=== PATIENT | male | born 1950 | race Caucasian/White ===

== ENCOUNTER 2022-01-05 16:46 | Outpatient (CLI) | payer MEDICARE, OTHER, SELFPAY | END 2022-01-05 23:59 | disposition home or self-care (01) | PROVIDERS: PCP Family Medicine; Visit Provider Family Medicine | DX: Z20.822 Contact with and (suspected) exposure to COVID-19 (principal) | CPT/HCPCS: 87635; U0003; U0005 ==

== ENCOUNTER → 2023-11-28 | Outpatient (CLI) | payer MEDICARE, OTHER, SELFPAY ==
--- OUTSIDE RECORDS SUMMARY | 2023-11-28 12:20 | XMS RPT_ITS | CCD ---
Author Name Unknown Address [address] [place] [address] Organization [facility] Care Team Providers Care Executive Consultant Name Role Phone Helen Mason Unavailable Holly Aiken Unavailable Unavailable Lani Fonseca Primary Care Provider [phone] LANI FONSECA Attending Unavailable LANI FONSECA Admitting Unavailable XIMENAEL, LANI Primary Care Unavailable LANI FONSECA Admitting Unavailable LANI FONSECA Primary Care Unavailable ARIEL LANI Consulting Unavailable LAURA FONSECAH Attending Unavailable PROVIDER, UNKNOWN Consulting Unavailable PROVIDER, UNKNOWN Consulting Unavailable LANI FONSECA Attending Unavailable ARIEL, LANI Admitting Unavailable ARIEL LANI Primary Care Unavailable ARIEL LANI Referring Unavailable RAJEEV MARMOLEJO DO Admitting Unavailable RAJEEV MARMOLEJO DO Primary Care Unavailable RAJEEV MARMOLEJO DO Attending Unavailable LANI FONSECA Consulting Unavailable PROVIDER, UNKNOWN Consulting Unavailable PROVIDER, UNKNOWN Consulting Unavailable Medications Completed/Discontinued Medications Medication Drug Class(es) Dates Sig (Normalized) Sig (Original) CPAP (1 source) CPAP hydroCHLOROthiazide 25 mg / lisinopril 20 mg oral tablet (1 source) Thiazide Diuretic, Angiotensin Converting Enzyme Inhibitor Start: 01-05-2021 take 1 tablet by mouth once daily lisinopril-hydr oCHLOROthiazide (PRINZIDE, ZESTORETIC) 20-25 mg per tablet Take 1 tablet by mouth once daily. 0 01/05/2021 Active Problems Active Problems Problem Classification Problem Date Documented Da te Episodic/Chronic Cancer of prostate (1 source) Malignant tumor of prostate; Translations: [Malignant neoplasm of prostate] Chronic Immunizations and screening for infectious disease (2 sources) Contact with and (suspected) exposure to other viral communicable diseases; Translations: [Exposure to SARS virus] 07-26-2020 Episodic Past or Other Problems Problem Classification Problem Date Documented Da te Episodic/Chronic Spondylosis; intervertebral disc disorders; other back problems (3 sources) Radiculopathy, lumbar region; Translations: [Radiculopathy, lumbar region] Onset: 12-11-2022 Episodic Unclassified (2 sources) Unclassified (2 sources) Exposure to SARS virus Results Test Name Value Interpretation Reference Range Facil ity Vital Signs Date Time Vital Sign Value Performing Clinician Faci lity 02-17-2021 09:40-0400 Body height 177.8 cm Nicholas Zamora MD Work Phone: [facility] 02-17-2021 09:40-0400 Body temperature 96.91 [degF] Nicholas Zamora MD Work Phone: [facility] 02-17-2021 09:40-0400 Body weight 102.38 kg Nicholas Zamora MD Work Phone: [facility] 02-17-2021 09:40-0400 Diastolic blood pressure 92 mm[Hg] Nicholas Zamora MD Work Phone: [facility] 02-17-2021 09:40-0400 Heart rate 91 /min Nicholas Zamora MD Work Phone: [facility] 02-17-2021 09:40-0400 Systolic blood pressure 143 mm[Hg] Nicholas Zamora MD Work Phone: [facility] Encounters Encounter Date Encounter Type Care Provider Facility Start: 11-07-2023 End: 11-07-2023 ambulatory [facility] Start: 12-13-2022 End: 12-14-2022 Emergency department patient visit [facility] Start: 12-12-2022 End: 12-12-2022 ambulatory [facility] Start: 12-11-2022 End: 01-15-2023 ambulatory [facility] Start: 02-17-2021 End: 02-17-2021 Patient encounter procedure Nicholas Zamora MD Work Phone: Urology Procedures Date Procedure Procedure Detail Performing Clinician Start: 11-07-2023 PSA screening LANI JHAVERI Plan of Treatment Date Care Activity Detail Author Start: 06-21-2021 Influenza vaccination INFLUENZA (Sea son Ended) [facility] Start: 02-24-2021 End: 03-19-2022 Bone &/joint imaging whole body NM BONE WHOLE BODY Radiology Routine Malignant neoplasm of prostate (HCC) Expected: 02/24/2021, Expires: 03/19/2022 [facility] Payers Date Payer Category Payer Unknown MMO MMO MEDICARE SUPPLEMENT [id number] 2020-Present Indemnity [id number] 2016 Medicare MEDICARE MEDICAR E A AND B [id number] 2016-Present [place] Medicare [id number] 1950 Unknown [id number] 1950 Unknown [id number] 1950 Unknown [id number] 1950 Unknown [id number] Medicare [id number] Unknown Unknown [id number] Social History Date Type Detail Facility Tobacco smoking status HIIS Unknown if ev er smoked [facility] Start: 1950 Sex Assigned At Not on file [facility] Exposure to SARS-CoV -2 (event) Unable to assess [facility] Start: 02-17-2021 Tobacco smoking status NHIS Never sm oker [facility] Start: 02-17-2021 Tobacco use and exposure Never used [facility] Start: 1950 Sex Assigned At Male [facility] Exposure to SARS-CoV -2 (event) Not sure [facility] Clinical Notes 02-17-2021 to 09-12-2021 Nicholas Zamora MD - 02/17/2021 9:40 AM EDT Note Date & Type Note Facility 09-12-2021 Note HNO ID: [id number] Author: Kenyon Navarrete, DO Service: ? Author Type: Physician Type: Progress Notes Filed: 09/12/2021 10:46 AM Note Text: ?? [facility] [place] [facility] UROLOGY LOCATION: [address] [place] [address] ESTABLISHED PATIENT PATIENT INFO: Gabriela Stephens 71 year old Chief Complaint: Prostate Cancer HPI S/P RARP with PLND 05/22/21. RAJWINDER down to one safety liner. 1-Duration: 2020 2-Location: prostate 3-Severity: N/A 4-Quality: Not applicable 5-Context: N/A 6-Timing: N/A 7-Modifying factors: No treatment prior to referral 8-Associated signs AND symptoms: no additional symptoms PATHOLOGY: FINAL DIAGNOSIS A. ?Prostate with bilateral seminal vesicles and bilateral pelvic lymph nodes, radical prostatectomy with lymph node dissection ? Prostatic adenocarcinoma, [place] score 3+4 = 7 (grade group 2) with approximately 10% pattern 4 present. ?Tumor is confined within the prostate gland. ?The left base margin is focally positive for malignancy. ?See comment. ?Seminal vesicles, bilateral ? Negative for malignancy. ?Bilateral pelvic lymph nodes (7) ? Negative for malignancy. LAB: WBC (k/uL) Date Value 05/23/2021 11.43 (H) RBC (m/uL) Date Value 05/23/2021 3.92 (L) Hemoglobin (g/dL) Date Value 05/23/2021 12.3 (L) Hematocrit (%) Date Value 05/23/2021 35.4 (L) MCV (fL) Date Value 05/23/2021 90.3 MCH (pg) Date Value 05/23/2021 31.4 MCHC (g/dL) Date Value 05/23/2021 34.7 RDW-CV (%) Date Value 05/23/2021 13.4 Platelet Count (k/uL) Date Value 05/23/2021 166 MPV (fL) Date Value 05/23/2021 10.7 Creatinine Date Value Ref Range Status 05/26/2021 2.09 (H) 0.73 - 1.22 mg/dL Final 05/23/2021 3.00 (H) 0.73 - 1.22 mg/dL Final 05/23/2021 3.00 (H) 0.73 - 1.22 mg/dL Final 05/11/2021 1.41 (H) 0.73 - 1.22 mg/dL Final PSA (ng/mL) Date Value 09/09/2021 <0.1 URINE POC GLUCOSE UA (POCT) Negative 09/12/2021 BILIRUBIN UA (POCT) Negative 09/12/2021 KETONE UA (POCT) Negative 09/12/2021 SPECIFIC GRAVITY UA (POCT) 1.020 09/12/2021 HEMOGLOBIN/BLOOD UA (POCT) Negative 09/12/2021 PH UA (POCT) 7.0 09/12/2021 PROTEIN UA (POCT) Negative 09/12/2021 UROBILINOGEN UA (POCT) 0.2 09/12/2021 NITRITE UA (POCT) Negative 09/12/2021 LEUKOCYTES UA (POCT) Negative 09/12/2021 COLOR UA (POCT) Yellow 09/12/2021 CLARITY UA (POCT) Clear 09/12/2021 IMAGING: None No imaging to review. ALLERGIES: ALLERGIES No Known Allergies MEDICATIONS: docusate sodium (COLACE) 100 mg capsule Take 1 capsule by mouth twice daily. lisinopril-hydroCHLOROthiazide (PRINZIDE, ZESTORETIC) 20-25 mg per tablet Take 1 tablet by mouth once daily. lovastatin (MEVACOR) 20 mg tablet 20 mg once daily. metFORMIN ER (GLUCOPHAGE XR) 500 mg 24 hr tablet Take 500 mg by mouth twice daily. niacin 1,000 mg TbER Take 1 tablet by mouth once daily. CPAP iv contrast (will be provided with radiology test) MRI Prostate Inject, intravenously, once for 1 dose. No IV access, insert saline lock prior to the beginning of sedation, infusion, injection of imaging exam. Discontinue saline lock post exam. If Pt. has a central line or IVAD, may access for administration according to line specific nursing protocol. Once exam is complete flush line and de-access according to line specific nursing protocol in the MR contrast administration guidelines link. Does the patient take any herbal medications?: No HISTORIES PAST MEDICAL HISTORY Diagnosis Date - Diabetes mellitus (HCC) - HLD (hyperlipidemia) - HTN (hypertension) - VASILE on CPAP - Prostate cancer (HCC) Smoking Status Reviewed: Yes REVIEW OF SYSTEMS GENERAL: No fever, chills, weight loss, or fatigue. HEAD AND NECK: No blurred vision or Sjogren's syndrome CARDIOVASCULAR: NO CHEST PAIN, PALPITATIONS, ANKLE EDEMA RESPIRATORY: No chronic cough, wheezing, dyspnea, hemoptysis. MUSCULOSKELETAL: NO CHRONIC BACK PAIN, ARTHRITIS, CHRONIC NECK PAIN SKIN: NO VARICOSE VEINS, RASH, ABNORMAL ITCHING BLOOD/LYMPHATIC: No easy bleeding, easy bruising, transfusion Hx NEUROLOGICAL: NO HEADACHES, NUMBNESS, SEIZURES, STROKE PSYCHIATRIC: No depression or inordinate anxiety The remainder of the ROS was negative. PHYSICAL EXAMINATION BP 124/90 Ht 177.8 cm (5' 10 ) Wt 97.5 kg (215 lb) BMI 30.85 kg/m? General appearance: Well appearing, alert, in no acute distress and well-hydrated, well nourished Skin: Skin color, texture, turgor normal, no suspicious rashes or lesions Head: Normocephalic, no masses, lesions, tenderness or abnormalities Abdomen: Normal abdominal exam, Abdomen soft, non-tender. Bowel sounds normal. No masses, organomegaly Genitourinary: MALE EXAM: Exam NOT Indicated PVR: NA IMPRESSION/PLAN: Elpidio 3+4 = 7 prostate cancer S/P RARP with PLND. Grossly negative margins. PSA in 3 months undetectable. Vicente. Deidra 5 (more content not included)... [facility] 05-30-2021 Note HNO ID: [id number] Author: Kenyon Navarrete, DO Service: ? Author Type: Physician Type: Progress Notes Filed: 05/30/2021 11:00 AM Note Text: ?? [facility] [place] [facility] UROLOGY LOCATION: [address] [place] [address] ESTABLISHED PATIENT PATIENT INFO: Gabriela Stephens 70 year old Chief Complaint: Prostate Cancer HPI S/P RARP with PLND. Doing well. Reece removed. No pain. 1-Duration: 2020 2-Location: prostate 3-Severity: N/A 4-Quality: Not applicable 5-Context: N/A 6-Timing: N/A 7-Modifying factors: No treatment prior to referral 8-Associated signs AND symptoms: no additional symptoms PATHOLOGY: FINAL DIAGNOSIS A. Prostate with bilateral seminal vesicles and bilateral pelvic lymph nodes, radical prostatectomy with lymph node dissection ? Prostatic adenocarcinoma, [place] score 3+4 = 7 (grade group 2) with approximately 10% pattern 4 present. Tumor is confined within the prostate gland. The left base margin is focally positive for malignancy. See comment. Seminal vesicles, bilateral ? Negative for malignancy. ? Bilateral pelvic lymph nodes (7) ? Negative for malignancy. LAB: WBC (k/uL) Date Value 05/23/2021 11.43 (H) RBC (m/uL) Date Value 05/23/2021 3.92 (L) Hemoglobin (g/dL) Date Value 05/23/2021 12.3 (L) Hematocrit (%) Date Value 05/23/2021 35.4 (L) MCV (fL) Date Value 05/23/2021 90.3 MCH (pg) Date Value 05/23/2021 31.4 MCHC (g/dL) Date Value 05/23/2021 34.7 RDW-CV (%) Date Value 05/23/2021 13.4 Platelet Count (k/uL) Date Value 05/23/2021 166 MPV (fL) Date Value 05/23/2021 10.7 Creatinine Date Value Ref Range Status 05/26/2021 2.09 (H) 0.73 - 1.22 mg/dL Final 05/23/2021 3.00 (H) 0.73 - 1.22 mg/dL Final 05/23/2021 3.00 (H) 0.73 - 1.22 mg/dL Final 05/11/2021 1.41 (H) 0.73 - 1.22 mg/dL Final URINE POC No results found for this basename: uglucpoc,ubilipoc,uketonpoc,usgpo c,uhbpoc,uphpoc,upropoc,uuropoc,u nitpoc, bcpoc,ucolpoc,uclarpoc IMAGING: None No imaging to review. ALLERGIES: ALLERGIES No Known Allergies MEDICATIONS: docusate sodium (COLACE) 100 mg capsule Take 1 capsule by mouth twice daily. lisinopril-hydroCHLOROthiazide (PRINZIDE, ZESTORETIC) 20-25 mg per tablet Take 1 tablet by mouth once daily. lovastatin (MEVACOR) 20 mg tablet 20 mg once daily. metFORMIN ER (GLUCOPHAGE XR) 500 mg 24 hr tablet Take 500 mg by mouth twice daily. niacin 1,000 mg TbER Take 1 tablet by mouth once daily. CPAP iv contrast (will be provided with radiology test) MRI Prostate Inject, intravenously, once for 1 dose. No IV access, insert saline lock prior to the beginning of sedation, infusion, injection of imaging exam. Discontinue saline lock post exam. If Pt. has a central line or IVAD, may access for administration according to line specific nursing protocol. Once exam is complete flush line and de-access according to line specific nursing protocol in the MR contrast administration guidelines link. Does the patient take any herbal medications?: No HISTORIES PAST MEDICAL HISTORY Diagnosis Date - Diabetes mellitus (HCC) - HLD (hyperlipidemia) - HTN (hypertension) - VASILE on CPAP - Prostate cancer (HCC) Smoking Status Reviewed: Yes REVIEW OF SYSTEMS GENERAL: No fever, chills, weight loss, or fatigue. HEAD AND NECK: No blurred vision or Sjogren's syndrome CARDIOVASCULAR: NO CHEST PAIN, PALPITATIONS, ANKLE EDEMA RESPIRATORY: No chronic cough, wheezing, dyspnea, hemoptysis. MUSCULOSKELETAL: NO CHRONIC BACK PAIN, ARTHRITIS, CHRONIC NECK PAIN SKIN: NO VARICOSE VEINS, RASH, ABNORMAL ITCHING BLOOD/LYMPHATIC: No easy bleeding, easy bruising, transfusion Hx NEUROLOGICAL: NO HEADACHES, NUMBNESS, SEIZURES, STROKE PSYCHIATRIC: No depression or inordinate anxiety The remainder of the ROS was negative. PHYSICAL EXAMINATION Ht 177.8 cm (5' 10 ) Wt 97.5 kg (215 lb) BMI 30.85 kg/m? General appearance: Well appearing, alert, in no acute distress and well-hydrated, well nourished Skin: Skin color, texture, turgor normal, no suspicious rashes or lesions Head: Normocephalic, no masses, lesions, tenderness or abnormalities Abdomen: Normal abdominal exam, Abdomen soft, non-tender. Bowel sounds normal. No masses, organomegaly Genitourinary: MALE EXAM: Exam NOT Indicated PVR: NA IMPRESSION/PLAN: [place] 3+4 = 7 prostate cancer S/P RARP with PLND. Grossly negative margins. PSA in 3 months. Kegels. Cialis 5 mg daily. Repeat BP improving. May need nephrology consult thru PCP. RTC in 3 months. Consider PFT. I spent 30 minutes in the visit, with more than 50% of the total wmgp-us-itls time of the visit in counseling / coordination of care. Kenyon Navarrete DO MBA [facility] 05-23-2021 Note HNO ID: [id number] Author: Cristofer Vaughan MD Service: Urology Author Type: Physician Type: Progress Notes Filed: 05/23/2021 8:48 AM Note Text: UROLOGY PROGRESS NOTE PATIENT NAME: Gabriela Stephens DATE OF : 1950 ADMISSION DATE: 05/22/2021 6:36 AM Subjective No acute events overnight. Patient slept comfortably overnight States pain has been 3/10 since surgery and controlled with meds Denies fevers, nausea, vomiting Has passed flatus but has not ambulated Objective VS: BP 124/70 Pulse 91 Temp 36.7 ?C (98.1 ?F) (Oral) Resp 17 Ht 177.8 cm (5' 10 ) Wt 99.6 kg (219 lb 8 oz) SpO2 95% BMI 31.49 kg/m? I AND O - 24hr: Intake/Output Summary (Last 24 hours) at 05/23/2021 0643 Last data filed at 05/23/2021 0400 Gross per 24 hour Intake 2350 ml Output 575 ml Net 1775 ml Physical Exam: General: Neck: Resp: Abdomen: No acute distress Supple Normal effort Soft, appropriately-tender, nondistended. Incisions clean, dry, intact : Appropriate mild suprapubic tenderness. No flank pain bilaterally Labs and Imaging Studies LABS: BMP: Glucose (mg/dL) Date Value 05/23/2021 215 Potassium (mmol/L) Date Value 05/23/2021 4.5 Sodium (mmol/L) Date Value 05/23/2021 132 Chloride (mmol/L) Date Value 05/23/2021 99 CO2 (mmol/L) Date Value 05/23/2021 19 Creatinine (mg/dL) Date Value 05/23/2021 3.00 BUN (mg/dL) Date Value 05/23/2021 43 Anion Gap (mmol/L) Date Value 05/23/2021 14 Calcium, Total (mg/dL) Date Value 05/23/2021 8.4 CBC: Hemoglobin (g/dL) Date Value 05/23/2021 12.3 Hematocrit (%) Date Value 05/23/2021 35.4 WBC (k/uL) Date Value 05/23/2021 11.43 Platelet Count (k/uL) Date Value 05/23/2021 166 Urinalysis: No results found for: PH, SPGR, UGLUC, UBILI, UKET, UHB, UPROT, UROBIL, NITRITES, UWBC, SSA Urine Culture: No results found for: URCUL RADIOLOGY: None Assessment and Plan ASSESSMENT: 70 year old male POD 1 robotic retropubic radial prostatectomy with pelvic lymph node dissection PLAN: Regular diet Utilize IS IV LR @50 OOB, ambulate as able Pain and nausea management PRN Anticipate DC today if tolerating pain, eating, and ambulating comfortably Stephen Kay MS Agree with medical student assessment and plan as above. Any additions noted in blue and any changes noted with . Advance diet. SQH for DVT PPx given elevated serum Cr Plan for discharge if tolerating diet, ambulating and pain controlled. Outpatient BMP to check renal function after discharge. Jaylen Win MD Urology, PGY5 7:28 AM 05/23/2021 #[id number] I saw and evaluated the patient. Discussed with the resident and agree with resident's findings and plan as documented in the resident's note. [facility] 05-22-2021 Note HNO ID: [id number] Author: Jessica Evans APRN.RUG SIZER Service: Anesthesiology Author Type: Nurse Cad Specialist Type: Anesthesia Procedure Notes Filed: 05/22/2021 8:58 AM Note Text: ANESTHESIOLOGY PROCEDURE NOTE PIV General Information Patient Location: OR Staffing RUG SIZER: Jessica Evans APRN.RUG SIZER Performed by: ABIODUN Preparation Sterility Preparation: hand hygiene performed prior to procedure, surgical cap used, mask used, skin prep agent completely dried prior to procedure Site Prep: Chloraprep Procedure Details Indication: need for IV access Needle Size/Type: 16 gauge angiocath Orientation: Left Location: Forearm Imaging Guidance Used: No SIGNATURE: Jessica Evans APRN.CRNA PATIENT NAME: Gabriela Stephens DATE: May 22, 2021 TIME: 8:58 AM CSN: [id number] [facility] 05-22-2021 Note HNO ID: [id number] Author: Jessica Evans APRN.CRNA Service: Anesthesiology Author Type: Nurse Cad Specialist Type: Anesthesia Procedure Notes Filed: 05/22/2021 8:57 AM Note Text: ANESTHESIOLOGY PROCEDURE NOTE Airway General Information Procedure Start Time/Medication Administration: 05/22/2021 8:29 AM Patient location during procedure: OR Patient identity confirmed: arm band and patient Staffing Anesthesiologist: Keon Emanuel MD RUG SIZER: Jessica Evans APRN.RUG SIZER Performed by: anesthesiologist Indications and Patient Condition Preoxygenated: yes Patient position: sniffing and ramp Manual In-Line Stabilization: No Difficult Mask: No Indications for airway management: anesthesia anesthesia circuit Method: asleep Cricoid Pressure: No Airway Accessory: oral airway Final Airway Details Final airway type: endotracheal airway Final Endotracheal Airway: ETT Cuffed: yes Successful intubation technique: direct laryngoscopy Endotracheal tube insertion site: oral Blade: Vanessa Blade size: #3 (per dr. Emanuel, could be grade I with MAC 4) ETT size (mm): 8.0 Measured from: lips Measurement (cm): 24 Placement verified by: chest auscultation and capnometry Cormack-Lehane Classification: grade IIb - view of arytenoids or posterior of glottis only Number of attempts at approach: 1 Airway not difficult SIGNATURE: Jessica Evans APRN.CRNA PATIENT NAME: Gabriela Stephens DATE: May 22, 2021 TIME: 8:54 AM CSN: [id number] [facility] 05-11-2021 Note HNO ID: [id number] Author: RT Prema(R) Service: Radiology Author Type: Midwife Type: Progress Notes Filed: 05/11/2021 9:47 AM Note Text: Radiology Service Progress Note PATIENT NAME: Gabriela Stephens DATE OF SERVICE: May 11, 2021 TIME: 9:47 AM PATIENT IDENTITY VERIFICATION COMPLETED USING TWO (2) IDENTIFIERS: Name and Date of confirmed by patient verbally and Name and Date of confirmed by identification band. FALL SCREENING: Has the patient had 2 falls in the last year or 1 fall with injury or currently using an Ambulatory Assistive Device (Walker, Cane, Wheelchair, Crutches, etc.)? No PATIENT GENDER DATA: Male PATIENT RELEVANT IMPLANT DATA REVIEWED: Not Applicable RADIOLOGY DEPARTMENT: General X-ray: Exam(s) Completed: Chest X-Ray PERIPHERAL IV DATA: Not applicable SIGNED BY: RT Prema(R) May 11, 2021 9:47 AM [facility] 05-02-2021 Note HNO ID: [id number] Author: Natalie Burgess Service: ? Author Type: ? Type: Progress Notes Filed: 05/02/2021 1:24 PM Note Text: May 02, 2021 1:23 PM Patient is scheduled for surgery at [facility] with Dr. Navarrete on 05/22/2021 at 8:30am. PAT in [place] on 05/11/2021. Patient is aware of date, time, location, and pre op instructions. Patient had no further questions at this time. Booklet has been handed to patient in the [place] office Natalie Fernandez [facility] 05-02-2021 Note HNO ID: [id number] Author: Kenyon Navarrete, DO Service: ? Author Type: Physician Type: Progress Notes Filed: 05/02/2021 1:20 PM Note Text: ?? [facility] [place] [facility] UROLOGY LOCATION: [address] [place] [address] NEW CONSULT VISIT PATIENT INFO: Gabriela Stephens 70 year old PCP: Lani Fonseca MD Consultation requested by and my final recommendations will be communicated back to the requesting physician by way of shared medical record or letter via US mail. Chief Complaint: Prostate Cancer HPI Referral from Dr. Zamora. Here with to discuss surgery. He had an MRI fusion biopsy. This biopsy demonstrated 1 core of Elpidio 8 prostate cancer. HISTORY OF PRESENT ILLNESS: Mr. Stephens is a 70 year old and presents with spouse, Afsaneh to discuss prostate cancer management. ? Pt underwent negative prostate biopsy 10/2015. MRI in 2019 negative. Last prostate bx 01/17/2021. Pt brings results as they are still populating in [facility]. ? INTERPRETATION A. Left lateral base- chronic inflammation B. Left ladteral mid- benign prostate tissue C. Left lateral apex- benign prostate tissue with focal atrophy D. Left base0 adenocarcinoma; Elpidio Score 8 (4+4); tumor measures 0.21 cm in length; 15% core involved; perineural invasion not identified. E. 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 Left apex- benign prostate tissue with focal atrophy G. Right base- beningn prostate tissue ? ? NCCN CRITERIA VALUES Clinical Stage (AJCC 7th Edition) T1c, N0, Mx = stage IIC [T1-T2, N0, M0, PSA <20, GG 4] (AJCC 8th ed.) Previous PSA Score(s) (PSA Should Be Within 3 Months of Biopsy) 12/2020- 13.35 Date of Biopsy January 17, 2021 Type of Biopsy TRUS Random Biopsy [place]/ISUP Group 4 + 4 = 8 (Grade Group 4) Total # of Biopsy Cores 13 Total # of Positive Biopsy Cores 1 Greatest % Cancer in Any Single Core 10-25% PSA Density Result: 0.23 2016 NCCN Risk Group High Risk Group ? PERTINENT HISTORY: Urinary frequency (D/N): 12-14/3 Dysuria: No Incontinence: Minimal Hematuria: Minimal- only since bx Baseline Urinary Function: 1- No pads ? AUA QUESTIONNAIRE (Symptoms Prior to Biopsy): Incomplete Emptyin (less than 1 time in 5) Frequency (within 2 hours of previous void): 4 (more than half the time) Intermittency: 2 (less than half the time) Urgency (difficulty postponing urination): 2 (less than half the time) Weak Stream: 4 (more than half the time)- over the past year Strainin (less than 1 time in 5) Nocturia: 3x per night - Total AUA Score: 17 ? BASELINE ERECTILE FUNCTION: 3- Diminished but occasionally satisfactory for intercourse SHANNON score: 12 PREVIOUS TREATMENTS: None ? TESTING TO DATE: MR Results: 04/2020- Volume 57.7 No target lesion of concerning focus of restricted diffusion. No ARNOLDO or adenopathy ? GENOMIC TESTING: None 1-Duration: 2020 2-Location: prostate 3-Severity: N/A 4-Quality: Not applicable 5-Context: N/A 6-Timing: N/A 7-Modifying factors: No treatment prior to referral 8-Associated signs AND symptoms: no additional symptoms PATHOLOGY: FINAL DIAGNOSIS 1. Prostate, left lateral base, biopsy ([id number], 01/17/2021, A) - Benign prostatic tissue. 2. Prostate, left lateral mid, biopsy (B) - Benign prostatic tissue. 3. Prostate, left lateral apex, biopsy (C) - Benign prostatic tissue. 4. Prostate, left base, biopsy (D) - Adenocarcinoma of the prostate, Elpidio Score 4+3=7 (Grade Group 3), involving one of one core (15%, 2 mm). - Cribriform pattern 4 is identified. 5. Prostate, left mid, biopsy (E) - Benign prostatic tissue. 6. Prostate, left apex, biopsy (F) - Benign prostatic tissue. 7. Prostate, right base, biopsy (G) - Benign prostatic tissue. 8. Prostate, right mid, biopsy (H) - Benign prostatic tissue. 9. Prostate, right apex, biopsy (I) - High-grade prostatic intraepithelial neoplasia. 10. Prostate, right lateral base, biopsy (J) - Benign prostatic tissue. 11. Prostate, right lateral mid, biopsy (K) - High-grade prostatic intraepithelial neoplasia. 12. Prostate, right lateral apex, biopsy (L) - High-grade prostatic intraepithelial neoplasia. Prostate Cancer Biopsy Summary Number of cores examined: 12 Number of cores positive: 1 Highest Grade Group: 3 Highest % of core involvement: 15% Cribriform pattern 4: Present Intraductal carcinoma: Absent CGP/dsh 02/16/2021 LAB: No results found for: WBC, RBC, HB, HCT, MCV, MCH, MCHC, RDWCV, PLT, MPV, NEUTP, LYMPHP, MONOP, EODINP, BASOP, ABSNEUT, ABSLYM, ABSMONO, ABSEOSIN, ABSBASO No results found for: CREAT No results found for: PSA, PSAPER URINE POC No results found for this basename: uglucpoc,ubilipoc,uketonpoc,usgpo c,uhbpoc,uphpoc,upropoc,uuropoc,u nitpoc,uw bcpoc,ucolpoc,uclarpoc IMAGING: MRI: IMPRESSION: 1.4 cm PI-RADS 3 lesion at the LEFT mid/base ant (more content not included)... [facility] 03-22-2021 Note HNO ID: [id number] Author: RT Mariana(R) Service: Radiology Author Type: Midwife Type: Progress Notes Filed: 03/22/2021 6:02 PM Note Text: Radiology Service Progress Note PATIENT NAME: Gabriela Stephens DATE OF SERVICE: March 22, 2021 TIME: 6:01 PM PATIENT IDENTITY VERIFICATION COMPLETED USING TWO (2) IDENTIFIERS: Name and Date of confirmed by patient verbally and Name and Date of confirmed by identification band. FALL SCREENING: Has the patient had 2 falls in the last year or 1 fall with injury or currently using an Ambulatory Assistive Device (Walker, Cane, Wheelchair, Crutches, etc.)? No PATIENT GENDER DATA: Male PATIENT RELEVANT IMPLANT DATA REVIEWED: Yes RADIOLOGY DEPARTMENT: MR; Exam(s) Completed: Body: Prostate PERIPHERAL IV DATA: Site assessment: Clean,Dry and Intact, Site disposition Discontinued SIGNED BY: RT Mariana(R) March 22, 2021 6:01 PM [facility] 03-22-2021 Note HNO ID: [id number] Author: Mimi Huber RN Service: Radiology Author Type: Registered Nurse Type: Progress Notes Filed: 03/22/2021 4:14 PM Note Text: Radiology Service Progress Note DATE OF SERVICE: March 22, 2021 TIME: 4:09 PM PATIENT WEIGHT: 222LBS PATIENT IDENTITY VERIFICATION COMPLETED USING TWO (2) STANDARD IDENTIFIERS: Name and Date of confirmed by patient verbally and Name and Date of confirmed by identification band. FALL SCREENING: Has the patient had 2 falls in the last year or 1 fall with injury or currently using an Ambulatory Assistive Device (Walker, Cane, Wheelchair, Crutches, etc.)? No PATIENT GENDER DATA: Male ALLERGIES: Reviewed and unchanged CONTRAST ALLERGY: No EXAM: MRI - CONTRAST TYPE: GROUP II IV SITE: Ambulatory: A peripheral IV was started in the Left antecubital site with a Angio cath: 22 gauge. blood return obtained. Flushed with 10cc normal saline IV SITE APPEARANCE: Clean,Dry and Intact SIGNATURE: Mimi Huber RN PATIENT NAME: Gabriela Stephens DATE: March 22, 2021 TIME: 4:09 PM [facility] 02-28-2021 Note HNO ID: [id number] Author: RT Monico(R) Service: Nuclear Medicine Author Type: Midwife Type: Progress Notes Filed: 02/28/2021 12:19 PM Note Text: RADIOLOGY SERVICE PROGRESS NOTE SERVICE DATE: 02/28/2021 SERVICE TIME: 12:18 PM PATIENT IDENTITY VERIFICATION COMPLETED USING TWO (2) STANDARD IDENTIFIERS: Name and Date of confirmed by patient verbally FALL SCREENING: Has the patient had 2 falls in the last year or 1 fall with injury or currently using an Ambulatory Assistive Device (Walker, Cane, Wheelchair, Crutches, etc.)? No PATIENT GENDER DATA: .male ALLERGIES: Reviewed and unchanged MEDICATIONS REVIEWED: No PATIENT RELEVANT IMPLANT DATA REVIEWED: Not Applicable CREATININE: No results found for: CREAT, EGFROTH, EGFRAA P.O.C.T. RESULTS: N/A February 28, [address] PERFORMED: No IV SITE: Ambulatory: NM only - direct IV injection in the Right antecubital site POST EXAM PIV STATUS: Not applicable PROCEDURE TYPE: NM INJECT: Whole Body Bone Scan. 23.1 mCi Tc99m MDP. No other medications given.. ADMINISTRATION TIME: 1100 PATIENT DISCHARGED TO: Ambulatory patient, left SD department area. A Diagnostic radioactive procedure has taken place, with no further precautions necessary other than routine body substance precautions. More information regarding radiation safety can be found using this link: [email or web address] SIGNATURE: RT Monico(R) PATIENT NAME: Gabriela Stephens DATE: February 28, 2021 TIME: 12:18 PM PAGER/CONTACT #: [facility] 02-17-2021 History of Present illness Narrative PROSTATE CANCER INITIAL VISIT SERVICE DATE: February 15, 2021 PRIMARY CARE PROVIDER: Lani Fonseca MD REFERRING PROVIDER: Иван Hickman MD [address] [facility] [address] [address] Consult requested for an opinion regarding the evaluation and treatment of prostate cancer. My final impression and recommendations will be communicated back to the requesting physician by way of the shared medical record or letter via US mail. SUBJECTIVE HISTORY OF PRESENT ILLNESS: Mr. Stephens is a 70 year old and presents with spouse, Afsaneh to discuss prostate cancer management. Pt underwent negative prostate biopsy 10/2015. MRI in 2019 negative. Last prostate bx 01/17/2021. Pt brings results as they are still populating in [facility]. INTERPRETATION A. Left lateral base- chronic inflammation B. Left ladteral mid- benign prostate tissue C. Left lateral apex- benign prostate tissue with focal atrophy D. Left base0 adenocarcinoma; Elpidio Score 8 (4+4); tumor measures 0.21 cm in length; 15% core involved; perineural invasion not identified. E. 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 Left apex- benign prostate tissue with focal atrophy G. Right base- beningn prostate tissue NCCN CRITERIA VALUES Clinical Stage (AJCC 7th Edition) T1c, N0, Mx = stage IIC [T1-T2, N0, M0, PSA <20, GG 4] (AJCC 8th ed.) Previous PSA Score(s) (PSA Should Be Within 3 Months of Biopsy) 12/2020- 13.35 Date of Biopsy January 17, 2021 Type of Biopsy TRUS Random Biopsy Elpidio/ISUP Group 4 + 4 = 8 (Grade Group 4) Total # of Biopsy Cores 13 Total # of Positive Biopsy Cores 1 Greatest % Cancer in Any Single Core 10-25% PSA Density Result: 0.23 2016 NCCN Risk Group High Risk Group PERTINENT HISTORY: Urinary frequency (D/N): 12-14/3 Dysuria: No Incontinence: Minimal Hematuria: Minimal- only since bx Baseline Urinary Function: 1- No pads AUA QUESTIONNAIRE (Symptoms Prior to Biopsy): Incomplete Emptyin (less than 1 time in 5) Frequency (within 2 hours of previous void): 4 (more than half the time) Intermittency: 2 (less than half the time) Urgency (difficulty postponing urination): 2 (less than half the time) Weak Stream: 4 (more than half the time)- over the past year Strainin (less than 1 time in 5) Nocturia: 3x per night - Total AUA Score: 17 BASELINE ERECTILE FUNCTION: 3- Diminished but occasionally satisfactory for intercourse SHANNON score: 12 PREVIOUS TREATMENTS: None TESTING TO DATE: MR Results: 04/2020- Volume 57.7 No target lesion of concerning focus of restricted diffusion. No ARNOLDO or adenopathy GENOMIC TESTING: None No past medical history on file. No past surgical history on file. No family history on file. KNOWN FAMILIAL HISTORY: None Social History Tobacco Use Smoking status: Not on file Substance Use Topics Alcohol use: Not on file Drug use: Not on file ALLERGIES Not on File MEDICATIONS: No prescriptions on file. As above. I saw and evaluated the pt; the history and exam were reviewed with the RN and resident and confirmed by me; and the plan was then outlined. OBJECTIVE REVIEW OF SYSTEMS: GENERAL: Negative for fevers, chills, or night sweats. HEENT: Negative for sudden vision or hearing changes. RESPIRATORY: Negative for cough or shortness of breath. CARDIAC: Negative for chest pain, palpitations, murmurs, or syncopal episodes. GASTROINTESTINAL: Negative for diarrhea, constipation, abdominal pain and poor appetite. GENITOURINARY: See HPI. MUSCULOSKELETAL: See HPI. NEUROLOGIC: Negative for dizziness, headache, weakness or numbness. HEMATOLOGIC: Negative for bleeding or easy bruising. SKIN: Negative for rashes or other skin changes. LYMPHATIC: No masses noted. EXTREMITIES: No swelling of extremities. ASSESSMENT PHYSICAL EXAM: BP 143/92 Pulse 91 Temp 36.1 C (96.9 F) (Left Tympanic) Ht 177.8 cm (5' 10 ) Wt 102.4 kg (225 lb 11.2 oz) BMI 32.38 kg/m PHYSICAL EXAM EASTERN COOPERATIVE ONCOLOGY GROUP: 0- Fully active, able to carry on all pre-disease performance w/o restriction. GENERAL APPEARANCE: Alert and oriented. NECK: Normal ROM. LUNGS: Normal breath sounds, no wheezes or crackles. MUSCULOSKELETAL: No edema. NEUROLOGIC: Gait normal. SKIN: Skin color, texture, turgor normal. No suspicious rashes or lesions. RECTAL: Sphincter tone normal, no mass. and Digital rectal exam negative. Prostate benign IMPRESSION/PLAN: High risk px ca base don outside read of Gl 8 No staging studies completed I rec 1. Review slides 2. MRI 3. Bone scan The decide on rx We discussed RP and seeds If RP send to Dr Navarrete Data reviewed contributing to MDM for this pt included: Current performance status Voiding and sexual function Current and historical PSA values Other biomarker results MRI result Detailed pathology review Pt preferences on eval and rx More than 50% of this visit was spent counseling the patient on the extent and aggressiveness of his cancer and available management options including active surveillance and definitive interventions (including surgical, radiation, and other approaches), with my recommendation based on cancer extent, aggressiveness, life expectancy, known comorbidities and patient's preferences. I spent a total of 30 minutes on the date of the service which included preparing to see the patient, [id number] patient care, completing clinical documentation, obtaining and/or reviewing separately obtained history, performing a medically appropriate examination and counseling and educating the patient/family/caregiver. also present for discussion Nicholas Zamora MD documented in this encounter [facility] documented in this encounter [facility] Summary Purpose Family History No Family History Records FoundNo Family History Records FoundNo Family History Records FoundNo Family History Records FoundNo Family History Records FoundNo Family History Records Found Advance Directives No Advanced Directives Records FoundNo Advanced Directives Records FoundNo Advanced Directives Records FoundNo Advanced Directives Records FoundNo Advanced Directives Records FoundNo Advanced Directives Records Found Additional Source Comments (unrecognized sect ion and content) No Status Records FoundNo Status Records FoundNo Status Records FoundNo Status Records FoundNo Status Records FoundNo Status Records Found INFORMATION SOURCE (unrecogn ized section and content) DATE CREATED AUTHOR AUTHOR'S ORGANIZ ATION 03/23/2021 [facility] DATE CREATED AUTHOR AUTHOR'S ORGANIZ ATION 07/13/2021 [facility] DATE CREATED AUTHOR AUTHOR'S ORGANIZ ATION 09/13/2021 [facility] DATE CREATED AUTHOR AUTHOR'S ORGANIZ ATION 12/14/2022 [facility] DATE CREATED AUTHOR AUTHOR'S ORGANIZ ATION 11/08/2023 Isaac Sequeira [facility] Source Comments (unrecognize d section and content) In the event this informatio n is protected by the Federal Confidentiality of Alcohol and Drug Abuse Patient Records regulations: The Federal rules restrict any use of the information to criminally investigate or prosecute any alcohol or drug abuse patient.[facility] the event this information is protected by the Federal Confidentiality of Alcohol and Drug Abuse Patient Records regulations: The Federal rules restrict any use of the information to criminally investigate or prosecute any alcohol or drug abuse patient.[facility] the event this information is protected by the Federal Confidentiality of Alcohol and Drug Abuse Patient Records regulations: The Federal rules restrict any use of the information to criminally investigate or prosecute any alcohol or drug abuse patient.[facility] the event this information is protected by the Federal Confidentiality of Alcohol and Drug Abuse Patient Records regulations: The Federal rules restrict any use of the information to criminally investigate or prosecute any alcohol or drug abuse patient.[facility] FOR RECORDS PERTAINING TO PATIENTS WHO ARE OR HAVE BEEN ENROLLED IN A CHEMICAL DEPENDENCY/SUBSTANCEABUSE PROGRAM, SOME INFORMATION MAY BE OMITTED. This clinical summary was aggregated from multiple sources. Caution should be exercised in using it in the provision of clinical care. This summary normalizes information from multiple sources, and as a consequence, information in this document may materially change the coding, format and clinical context of patient data. In addition, data may be omitted in some cases. CLINICAL DECISIONS SHOULD BE BASED ON THE PRIMARY CLINICAL RECORDS. [facility]. provides no warranty or guarantee of the accuracy or completeness of information in this document.
[2023-11-28 13:25] LABS: Thyroid Stim Hormone (TSH) 1.47 uIU/mL (0.358-3.74)
== END | disposition home or self-care (01) ==
LOC: BFHLAB 10:52
PROVIDERS: PCP Family Medicine; Visit Provider Family Medicine
DX: R00.0 Tachycardia, unspecified (principal)
CPT/HCPCS: 36415; 84443

== ENCOUNTER → 2024-05-21 | Outpatient (CLI) | payer MEDICARE, OTHER, SELFPAY ==
--- NOTE | 2024-05-21 06:03 | ECHOD_ITS ---
Reason For Study: ARRYTHMIA Procedure This was a 2D Doppler, Color Flow transthoracic echocardiogram. Exam performed in department. Left Ventricle Normal LV size. Left ventricular systolic function is normal. The left ventricular ejection fraction is 60 %. Stage 1 diastolic dysfunction. No regional wall motion abnormalities noted. Right Ventricle Normal RV size. Normal systolic function. Atria Normal left atrium. Normal right atrium. Aortic Valve Trisinus/trileaflet aortic valve. Mild focal aortic valve calcification. Pulmonic Valve Normal pulmonic valve. Great Vessels Mild to moderately dilated aortic root. Normal arch. The pulmonary artery is normal size. Inferior vena cava collapse with respiration. Pericardium/Pleural No pericardial effusion. MMode/2D Measurements & Calculations LVIDd: 4.6 cm IVSd: 1.4 cm Ao root diam: 4.5 cm LVIDs: 2.6 cm LVPWd: 1.1 cm FS: 44.4 % LAV(MOD-bp): 55.0 ml SV(MOD-sp4): 37.3 ml LVAd ap4: 28.0 cm2 LAV(MOD-bp) Indexed: 25.6 ml/m2 LVLd ap4: 8.3 cm LAV(MOD-sp2): 54.0 ml EDV(MOD-sp4): 77.4 ml LAV(MOD-sp4): 55.1 ml EDV(sp4-el): 79.9 ml LVAs ap4: 16.3 cm2 LVLs ap4: 6.8 cm ESV(MOD-sp4): 40.1 ml ESV(sp4-el): 33.2 ml EF(MOD-sp4): 48.2 % EF(sp4-el): 58.5 % SV(sp4-el): 46.7 ml LA dimension(2D): 4.0 cm LA A4 area: 19.3 cm2 RA A4 area: 13.2 cm2 Time Measurements MV dec time: 0.07 sec Doppler Measurements & Calculations MV E max lupillo: 46.5 cm/sec Lat Peak E' Lupillo: 7.6 cm/sec Med Peak E' Lupillo: 6.5 cm/sec MV A max lupillo: 70.6 cm/sec E/E' lat: 6.2 E/E' med: 7.2 MV E/A: 0.66 MV V2 max: 66.4 cm/sec Ao V2 max: 86.3 cm/sec MV max P.8 mmHg MV dec slope: 703.7 cm/sec2 Ao max P.0 mmHg MV V2 mean: 42.0 cm/sec Ao V2 mean: 62.5 cm/sec MV mean P.80 mmHg Ao mean P.8 mmHg MV V2 VTI: 13.9 cm Ao V2 VTI: 19.3 cm AV (velocity ratio): 0.76 LV V1 max: 74.5 cm/sec LV V1 max P.2 mmHg LV V1 mean P.3 mmHg LV V1 mean: 52.2 cm/sec LV V1 VTI: 14.7 cm ECHO/Echo Complete Interpretation Summary Normal LV size. Left ventricular systolic function is normal. The left ventricular ejection fraction is 60 %. Stage 1 diastolic dysfunction. Mild to moderately dilated aortic root. Ordering Physician: Zac Krause Referring Physician: Zac Krause Performed By: Tosin Freire RCS
--- NOTE | 2024-05-21 12:34 | STRESSREP ---
Stress Test Report Exercise myocardial perfusion stress test. 73-year-old man with a history of abnormal stress Stress protocol: Resting EKG demonstrates normal sinus rhythm with a rate of 73 bpm resting blood pressure is 142/88 mmHg. The patient exercised according to the regular Tomy protocol for a total duration of 7 minutes attaining a maximum heart rate of 131 bpm which was 88% of maximum predicted heart rate; the maximum workload was 10.1 metabolic equivalents. At rest there were no ST or T wave changes noted to suggest ischemia and at peak exercise upsloping ST changes only were noted which did not meet the criteria for ischemia. No clinical angina was noted the test was terminated due to the target heart rate being achieved/fatigue. The peak blood pressure was 168/82 mmHg. Rate-pressure product was 17,500. Myocardial perfusion protocol. 14.0 mCi of technetium 99m sestamibi was injected at rest. The patient exercised according to regular Tomy protocol for total duration of 7 minutes and at peak exercise 42.6 mCi of technetium 99m sestamibi was injected stress images were obtained stress and rest images were reconstructed in comparing the short axis vertical long and horizontal long axis. Gated images were also obtained. Perfusion SPECT analysis: Review of the stress images demonstrate normal uptake of tracer noted in all areas of the myocardium. The resting images similarly demonstrate normal uptake of tracer noted in all areas of the myocardium. No areas of reversibility are noted to suggest ischemia no previous infarct was noted. Gated SPECT analysis: The gated ejection fraction is 57%. Conclusion: Normal exercise myocardial perfusion stress test at a high workload Preserved ejection fraction.
== END | disposition home or self-care (01) ==
LOC: CVS 06:02
PROVIDERS: PCP Family Medicine; Referring Provider Internal Medicine Cardiovascular Disease; Visit Provider Internal Medicine Cardiovascular Disease
DX: I10 Essential (primary) hypertension (principal); I49.9 Cardiac arrhythmia, unspecified; R94.31 Abnormal electrocardiogram [ECG] [EKG]
CPT/HCPCS: 78452; 93017; 93306; A9500; A4216

== ENCOUNTER → 2024-06-09 | Outpatient (CLI) | payer MEDICARE, OTHER, SELFPAY ==
--- NOTE | 2024-06-09 08:15 | CT_ITS ---
STUDY: CTA CHEST REASON FOR EXAM: Male, 73 years old. Dilated aortic root RADIATION DOSAGE (If Supplied By Facility): CTDIvol = ( 20.16 ) mGy, DLP = ( 526.88 ) mGycm TECHNIQUE: The examination was performed with the intravenous administration of IV 100mL Isovue-370. Post-processing of the angiographic images was performed, with multiplanar reformation and 3D reconstruction. The protocol utilizes one or more of the following dose reduction techniques: automated exposure control, adjustment of mA and/or kV according to patient size,and/or use of iterative reconstruction technique. COMPARISON: No relevant prior comparison study available FINDINGS: Normal enhancement of the main pulmonary artery and right and left pulmonary arteries. Normal enhancement of the bilateral peripheral pulmonary arteries. There is no demonstrated pulmonary embolism. Ascending thoracic aorta measures 4.3 x 4.0 cm in diameter. Descending thoracic aorta measures 3.0 x 3.0 cm. There are peripheral calcifications and mural thrombus involving the thoracic aorta. There is no demonstrated aortic dissection. There are calcifications of the coronary arteries. Normal mediastinum. Normal hilar regions. Normal visualized trachea and bronchi. There is minimal bibasilar atelectasis. Normal chest wall structures. Normal osseous structures. The limited images of the upper abdomen demonstrate a diffusely low in attenuation liver fatty infiltration. CT/CTA Chest W/WO Contrast IMPRESSION: No demonstrated pulmonary embolism or arterial dissection. Ectatic ascending thoracic aorta measuring up to 4.3 x 4.0 cm. Atherosclerosis. Minimal bibasilar atelectasis. Fatty infiltration of the liver. Electronically Signed: Alison Sotomayor MD at 9:44 EDT ,
[2024-06-09 08:40] LABS: CREATININE FINGERSTICK 1.1 mg/dL (0.70-1.30); EGFR FINGERSTICK > 60.0000 mL/min (>60)
== END | disposition home or self-care (01) ==
LOC: CT 08:15
PROVIDERS: PCP Family Medicine; Referring Provider Physician Assistant Medical; Visit Provider Physician Assistant Medical
DX: I77.810 Thoracic aortic ectasia (principal)
CPT/HCPCS: 71275; Q9967

== ENCOUNTER → 2025-07-29 | Outpatient (CLI) | payer MEDICARE, OTHER, SELFPAY ==
--- NOTE | 2025-07-29 07:04 | MRI_ITS ---
PROCEDURE: SPINE LUMBAR (ROUTINE) 07/29/2025 REASON FOR EXAM: PAIN TECHNIQUE: Procedure Code: MRISPL Modality: MR Procedure: SPINE LUMBAR (ROUTINE) COMPARISON: X-ray lumbar spine 06/22/2025. FINDINGS: Vertebrae: Preserved in height and signal. Alignment: Anatomical. Conus Medullaris: Unremarkable. L1-2: Unremarkable. L2-3: Unremarkable. L3-4: Disc bulge with a 2 mm central disc protrusion. Facet joint arthropathy. Mild inferior bilateral foramina stenosis. Mild canal stenosis. L4-5: Disc bulge. Right paracentral disc protrusion measures 4 mm. Facet joint arthropathy. Mild bilateral foramina stenosis. No canal stenosis. L5-S1: Disc bulge. Facet joint arthropathy with fluid effusion. Mild bilateral foramina stenosis. No canal stenosis. Sacrum: Unremarkable in signal. MRI/Spine Lumbar (Routine) IMPRESSION: Right paracentral disc protrusion measures 4 mm at L4-L5 disc narrowing of the right subarticular space. The remainder levels as described without significant foraminal or canal stenos is. Reading Location: [id number]
== END | disposition home or self-care (01) ==
PROVIDERS: PCP Family Medicine; Referring Provider Student in an Organized Health Care Education/Training Program; Visit Provider Student in an Organized Health Care Education/Training Program
DX: M54.16 Radiculopathy, lumbar region (principal); M62.830 Muscle spasm of back
CPT/HCPCS: 72148

== ENCOUNTER → 2025-10-19 | Outpatient (CLI) | payer MEDICARE, OTHER, SELFPAY ==
[2025-10-19 11:08] LABS: Mucous, Urine 0 SEEN /hpf (<or=2+); Squamous Epithelial Cells - UA 0 SEEN /hpf (0-5)
[2025-10-19 12:27] LABS: Hematocrit 35.6 % (40-54); Hemoglobin 11.3 g/dL (13.0-16.5); Immature Granulocytes Count 0.020 X10^3/uL (0.0-0.0); Mean Corp Hgb Conc 31.7 g/dL (32-36); Mean Corpuscular Volume 89.9 fL (80-94); Mean Platelet Vol. 11.6 fl (6.2-12.0); NRBC Flagged by Analyzer 0 % (0-5); Platelet Count 192 K/mm3 (150-450); RBC Distribution Width CV 14.5 % (11.6-14.6); RBC Distribution Width SD 47.0 fl (35.1-43.9); Red Blood Count 3.96 M/mm3 (4.6-6.2); White Blood Count 5.2 K/mm3 (4.4-11.0)
[2025-10-19 12:29] LABS: Color, Urine Yellow (Yellow); Glucose, Dipstick 1000 mg/dl (Normal); Ketone-Dipstick Negative (Negative); Leukocyte Esterase-Dipstick Negative /ul (Negative); Nitrite-Dipstick Negative (Negative); Occult Blood-Urine 25 /ul (Negative); Protein-Dipstick 15 mg/dl (Negative); Specific Gravity, Urine 1.015 (1.002-1.030); Urine Bilirubin Dipstick Negative (Negative)
[2025-10-19 12:36] LABS: Red Blood Cells-Urine 0-5 SEEN /hpf (0-5)
[2025-10-19 12:58] LABS: Osmolality, Urine 474 mOsm/KG
[2025-10-19 13:01] LABS: AST(SGOT) 152 U/L (<=37); Alanine Aminotransfer ALT/SGPT 535 U/L (<=46); Albumin, Serum 4.1 g/dL (3.4-4.8); Alkaline Phosphatase 169 U/L (40-129); Anion Gap 12 (7-18); BUN 59 mg/dL (4-19); BUN/Creat Ratio 13.4 RATIO (10-20); Calcium,Total 9.2 mg/dL (7.6-11.0); Carbon Dioxide 18.8 mmol/L (20.0-29.0); Chloride 108 mmol/L (96-106); Creatinine, Urine (random) 86.70 mg/dL (39.00-259.00); Globulin 2.3 g/dL (2.2-4.2); Glucose 107 mg/dL (70-99); Potassium 4.8 mmol/L (3.5-5.1)
== END | disposition home or self-care (01) ==
LOC: BFHLAB 11:05
PROVIDERS: PCP Family Medicine; Visit Provider Family Medicine
DX: N18.4 Chronic kidney disease, stage 4 (severe) (principal); N17.9 Acute kidney failure, unspecified
CPT/HCPCS: 36415; 80053; 81001; 82570; 83935; 84300; 85025